=== PATIENT | female | born 1985 | race Two or more races ===

== ENCOUNTER 2017-09-18 18:43 | Emergency (ER) | payer SELFPAY ==
[~2017-09-18] VITALS: Ht 157.5 cm; Wt 57.6 kg
--- NOTE | 2017-09-18 18:51 | NUR ---
A/OX4, AMBULATORY TO ED BED 01 W/ C/O OF HEADACHE AND DIZZINESS. PT HAS A H/O DM, SHE CHECKED HER GLUCOSE LEVEL AT 4PM AND IT WAS 512 ACCDG TO THE PT. PT TAKES METFORMIN BID. DENIES CP OR SOB. VSS NAD RR EVEN AND UNLABORED. ALL NEEDS ARE ATTENED, PENDING ER EVALUATION
[2017-09-18] MEDS ORDERED: IV NS 0.9% 1,000 ML BAG IV ONE ×2 (19:00→20:30)
--- NOTE | 2017-09-18 19:03 | NUR ---
REPORT GIVEN LAMBERT STEWART FOR MANNIE.
--- NOTE | 2017-09-18 19:10 | NUR ---
BEDSIDE FOR EVAL.
[2017-09-18 19:23] LABS: BASOPHILS % (AUTO) 0.3 % (0.0-2.0); EOSINOPHILS # (AUTO) 0.7 /CMM (0.0-0.7); EOSINOPHILS % (AUTO) 7.3 % (0.0-6.0); HEMATOCRIT 41 % (33-45); HEMOGLOBIN 14.1 g/dL (11.5-14.8); LYMPHOCYTES # (AUTO) 2.6 /CMM (0.8-4.8); LYMPHOCYTES % (AUTO) 26.7 % (20.0-44.0); MEAN CORPUSCULAR HEMOGLOBIN 29 PG (26.0-33.0); MEAN CORPUSCULAR HGB CONC 34 g/dl (31.0-36.0); MEAN CORPUSCULAR VOLUME 85 fL (82-100); MONOCYTES # (AUTO) 0.5 /CMM (0.1-1.30); NEUTROPHILS # (AUTO) 5.9 /CMM (1.8-8.9); NEUTROPHILS % (AUTO) 60.7 % (43.0-81.0); PLATELET COUNT (AUTO) 266 /CMM (150-450); RDW COEFFICIENT OF VARIATION 12.9 (11.5-15.0); RED BLOOD CELL COUNT(AUTO) 4.82 MIL/uL (4.0-5.2); WHITE BLOOD COUNT (AUTO) 9.7 K/uL (4.3-11.0)
--- NOTE | 2017-09-18 19:33 | NUR ---
Patient is resting comfortably in bed with family bedside. VSS and no s/s of acute distress.
[2017-09-18 19:34] LABS: APPEARANCE,URINE Clear (CLEAR); BILIRUBIN,URINE Negative (NEGATIVE); BLOOD, URINE Negative Ery/uL (NEGATIVE); COLOR,URINE Yellow (YELLOW); KETONES,URINE Negative (NEGATIVE); LEUKOCYTE ESTERASE ,URINE Negative (NEGATIVE); NITRITE, URINE Negative (NEGATIVE); PH,URINE 5.5 (5.0-8.0); PROTEIN,URINE Negative (NEGATIVE); UGLUCOSE >=1000 mg/dL (NEGATIVE); UROBILINOGEN,URINE 0.2 EU/dL (0.2)
[2017-09-18 19:37] LABS: INR 0.88 (0.85-1.15)
[2017-09-18 19:39] LABS: BILIRUBIN,DIRECT 0.1 mg/dL (0.0-0.2); BILIRUBIN,TOTAL 0.6 mg/dL (0.2-1.0); CALCIUM, SERUM 9.4 mg/dL (8.5-10.1); CREATININE 0.7 mg/dL (0.6-1.3); POTASSIUM 3.7 mmol/L (3.5-5.1); TOTAL PROTEIN, SERUM 9.4 g/dL (6.4-8.2)
[2017-09-18 19:51] LABS: BACTERIA,URINE None seen /HPF (None Seen); RBC,URINE 0-2 /HPF (0-2); SQUAMOUS EPITHELIAL CELL,UR Few /HPF (None Seen); WBC,URINE 0-2 /HPF (0-3); YEAST,URINE Few /HPF (None Seen)
--- NOTE | 2017-09-18 21:00 | NUR ---
Patient discharged to home in stable condition. Written and verbal after care instructions given. Patient verbalizes understanding of instruction.IV removed. Catheter intact and site benign. Pressure and 4x4 applied to site. No bleeding noted. STEADY GAIT WHEN AMBULATING OUT.
[2017-09-18 21:06] VITALS: BP 116/56
== END 2017-09-18 21:06 | disposition home or self-care (01) ==
LOC: ER 18:48
DX: E11.65 Type 2 diabetes mellitus with hyperglycemia (principal); E86.0 Dehydration; Z79.84 Long term (current) use of oral hypoglycemic drugs; Z98.890 Other specified postprocedural states
CPT/HCPCS: 36415; 71045; 80048; 80076; 81001; 82962 ×2; 83605; 84703; 85025; 85730; 87040 ×2; 87086; 93005; 96360; 96361; 99285; A4606; J7030 ×2; Z7610; 81000-TC